=== PATIENT | female | born 1945 | race Caucasian/White ===

== ENCOUNTER 2018-09-29 01:40 | Outpatient (CLI) | payer MEDICARE, SELFPAY ==
[2018-09-29 11:29] LABS: ALT 20 U/L (12-78); AST 18 U/L (15-37); Albumin 3.7 g/dL (3.4-5.0); Alkaline Phosphatase 87 U/L (46-116); Anion Gap 8.3 mmol/L (3-11); BUN 13 mg/dL (7-18); Bilirubin, Total 0.5 mg/dL (0.2-1.0); CO2 28.7 mmol/L (21.0-32.0); CREATININE 0.74 mg/dL (0.55-1.02); Calcium 8.9 mg/dL (8.5-10.1); Chloride 101 mmol/L (98-107); Glucose 87 mg/dL (70-100); Potassium 3.9 mmol/L (3.5-5.1); Sodium 138 mmol/L (136-145)
[2018-09-29 11:49] LABS: Cholesterol 242 mg/dL (50-200); HDL Cholesterol 76 mg/dL (40-60); LDL CHOLESTEROL 143 mg/dL (<100); Triglyceride 60 mg/dL (30-150)
== END 2018-09-29 02:00 ==
PROVIDERS: PCP Family Medicine; Visit Provider Family Medicine
DX: I10 Essential (primary) hypertension (principal); E78.5 Hyperlipidemia, unspecified
CPT/HCPCS: 36415; 80053; 80061; 83721

== ENCOUNTER 2018-10-06 11:47 | Outpatient (REF) | payer MEDICARE, SELFPAY ==
--- NOTE | 2018-10-06 11:15 | SKI_PTH ---
PATIENT: Humaira Angulo LOC: [facility] U#:[id number] AGE/SX: 72/F ROOM: RE10/06/[address]: Saima Zurita MD, DC : 1945 BED: DIS: 10/06/2018 SPEC #: [id number] RECD: 10/07/18 11:33 STATUS: MELY REQ #: [id number] BEBA: 10/06/18 11:[address]: Saima Zurita DEPT: Surgical Specimen RECD BY: Karen Acevedo Tissues: 1 - SKIN BIOPSY(SHAVE/PUNCH) Procedures: SKIN LEVEL 4 Comments: [id number]
== END 2018-10-06 12:07 ==
LOC: LBN 11:47
PROVIDERS: PCP Family Medicine; Visit Provider Family Medicine
DX: L57.0 Actinic keratosis (principal)
CPT/HCPCS: 88305

== ENCOUNTER 2019-08-14 00:12 | Outpatient (CLI) | payer MEDICARE, SELFPAY ==
[2019-08-14 12:25] LABS: Calculated LDL 151 mg/dL (<100); Cholesterol 234 mg/dL (<200); HDL Cholesterol 66 mg/dL (40-60); Triglyceride 89 mg/dL (<150)
[2019-08-14 12:26] LABS: ALT 17 U/L (14-59); AST 15 U/L (15-37); Albumin 3.6 g/dL (3.4-5.0); Alkaline Phosphatase 83 U/L (46-116); Anion Gap 6.5 mmol/L (3-11); BUN 13 mg/dL (7-18); Bilirubin, Total 0.4 mg/dL (0.2-1.0); CO2 29.5 mmol/L (21.0-32.0); CREATININE 0.78 mg/dL (0.55-1.02); Chloride 104 mmol/L (98-107); Glucose 87 mg/dL (74-106); Sodium 140 mmol/L (136-145); Total Protein 6.6 g/dL (6.4-8.2)
== END 2019-08-14 00:32 ==
PROVIDERS: PCP Family Medicine; Visit Provider Family Medicine
DX: I10 Essential (primary) hypertension (principal); E78.5 Hyperlipidemia, unspecified; R74.0 Nonspecific elevation of levels of transaminase and lactic acid dehydrogenase [LDH]
CPT/HCPCS: 36415; 80053; 80061

== ENCOUNTER 2020-02-04 00:22 | Outpatient (CLI) | payer MEDICARE, SELFPAY ==
--- NOTE | 2020-02-04 13:31 | DI.MAMMO_ITS ---
EXAM: MG MAMMO SCREENING CLINICAL HISTORY: screening,Z12.39 TECHNIQUE: Bilateral full field digital CC and MLO mammographic images were obtained with 3D tomosyn thesis and utilizing computer aided detection (CAD). COMPARISON: Available for comparison. FINDINGS: Masses/Architectural Distortion: None seen. Microcalcifications: No suspicious pleomorphic-type are seen. Skin Thickening/Nipple Retraction: None. IMPRESSION: 1. No significant interval change with no specific features of malignancy noted. 2. Unless there is more urgent need, screening mammography is recommended, as per [employer] guidelines. BI-RADS Category 1 - Negative Breast Density - Category B - Scattered areas of fibroglandular density A negative radiographic report should not delay biopsy if a dominant or clinically suspicious mass is present. Up to ten percent of cancers are not identified on mammography. A negative report may reinforce clinical impression. Adenosis and dense breasts may obscure an underlying neoplasm. False positive reports average 6 to 10%. Patient will receive a letter notifying them of these results.
== END 2020-02-04 00:42 ==
PROVIDERS: PCP Family Medicine; Visit Provider Family Medicine
DX: Z12.31 Encounter for screening mammogram for malignant neoplasm of breast (principal)
CPT/HCPCS: 77063; 77067

== ENCOUNTER 2020-03-01 01:07 | Outpatient (CLI) | payer MEDICARE, SELFPAY ==
--- NOTE | 2020-03-01 07:15 | DI.DEXA_ITS ---
EXAM: XR DEXA BONE DENSITY W/WO APARNA CLINICAL HISTORY: osteoporosis,m81.0 TECHNIQUE: [email or web address] Horizon C densitometer. COMPARISON: 2002 and 2007 FINDINGS: The IV a image shows no evidence of compression fracture. The bone mineral density measurements of t he lumbar spine correspond to a total T-score of -1.0. This represents a 3.6 percent decrease when c ompared with 2007 and a 7.5 percent decrease in bone density when compared with 2002. The bone cone examiner al density measurements of the left hip correspond to a total T-score of -1.6 and a femoral neck T-sc ore of -1.8, in the osteopenic range. This represents a 10.2 percent decrease when compared with 200 8 and a 12.5 percent decrease when compared with 2002. The bone mineral density measurements of left forearm correspond to a T-score of the distal 3rd of -1.0, at the lower normal range. IMPRESSION: Osteopenia of the left hip with decrease in density when compared with previous exams. Total bone de nsity of the lumbar spine is at the low normal range. Mild decrease when compared with previous exam s.
== END 2020-03-01 01:27 ==
PROVIDERS: PCP Family Medicine; Visit Provider Family Medicine
DX: M81.0 Age-related osteoporosis without current pathological fracture (principal); M85.88 Other specified disorders of bone density and structure, other site
CPT/HCPCS: 77080

== ENCOUNTER 2020-10-07 01:43 | Outpatient (CLI) | payer MEDICARE, SELFPAY ==
[2020-10-07 13:06] LABS: ALT 25 U/L (14-59); AST 19 U/L (15-37); Albumin 3.8 g/dL (3.4-5.0); Alkaline Phosphatase 78 U/L (46-116); BUN 12 mg/dL (7-18); Bilirubin, Total 0.6 mg/dL (0.2-1.0); CREATININE 0.8 mg/dL (0.55-1.02); Chloride 105 mmol/L (98-107); Glucose 83 mg/dL (74-106); Potassium 3.8 mmol/L (3.5-5.1); Sodium 140 mmol/L (136-145); Total Protein 7.2 g/dL (6.4-8.2); Vitamin B12 383 pg/mL (193-986)
[2020-10-10 11:05] LABS: Hepatitis C Ab w Rflx HCV PCR Negative (Negative)
== END 2020-10-07 01:44 | disposition home or self-care (01) ==
LOC: LOS 01:43
PROVIDERS: PCP Family Medicine; Visit Provider Family Medicine
DX: I10 Essential (primary) hypertension (principal); L98.8 Other specified disorders of the skin and subcutaneous tissue; R23.8 Other skin changes; Z11.59 Encounter for screening for other viral diseases
CPT/HCPCS: 36415; 80053; 86803; 82607

== ENCOUNTER → 2021-12-06 03:43 | Outpatient (CLI) | payer MEDICARE, SELFPAY ==
--- NOTE | 2021-12-06 07:45 | DI.MAMMO_ITS ---
Exam(s) MAMMO SCREENING EXAM: MAMMO SCREENING CLINICAL HISTORY: screening, Z12.39 TECHNIQUE: Bilateral full field digital CC and MLO mammographic images were obtained with 3D tomosyn thesis and utilizing computer aided detection (CAD). COMPARISON: Available for comparison. FINDINGS: Masses/Architectural Distortion: None seen. Microcalcifications: No suspicious pleomorphic-type are seen. Skin Thickening/Nipple Retraction: None. IMPRESSION: 1. No significant interval change with no specific features of malignancy noted. 2. Unless there is more urgent need, screening mammography is recommended, as per [employer] guidelines. BI-RADS Category 1 - Negative Breast Density - Category B - Scattered areas of fibroglandular density Breast density category C or D implies that the patient has dense breast tissue. Dense breast tissue is very common and is not abnormal but dense breast tissue can make it harder to find cancer on a ma mmogram. Also, dense breast tissue may increase their breast cancer risk. This information about the result of the mammogram report was provided to the patient to raise their awareness. Use this report when you speak with the patient about their risks for breast cancer, which includes their family hist ory. At that time, you may recommend for more screening tests (Ultrasound or MRI) as they might be us eful based on their risk. A negative radiographic report should not delay biopsy if a dominant or clinically suspicious mass is present. Up to ten percent of cancers are not identified on mammography. A negative report may reinforce clinical impression. Adenosis and dense breasts may obscure an underlying neoplasm. False positive reports average 6 to 10%. Patient will receive a letter notifying them of these results.
== END ==
PROVIDERS: PCP Family Medicine; Visit Provider Family Medicine
DX: Z12.31 Encounter for screening mammogram for malignant neoplasm of breast (principal)
CPT/HCPCS: 77063; 77067

== ENCOUNTER 2022-02-13 10:03 | Outpatient (CLI) | payer MEDICARE, SELFPAY ==
[2022-02-13 11:22] LABS: ALT 21 U/L (14-59); AST 15 U/L (15-37); Albumin 3.7 g/dL (3.4-5.0); Alkaline Phosphatase 82 U/L (46-116); Anion Gap 7.7 mmol/L (3-11); BUN 18 mg/dL (7-18); Bilirubin, Total 0.5 mg/dL (0.2-1.0); CO2 27.3 mmol/L (21.0-32.0); CREATININE 0.9 mg/dL (0.55-1.02); Calcium 9.1 mg/dL (8.5-10.1); Chloride 99 mmol/L (98-107); Glucose 88 mg/dL (74-106); Potassium 3.2 mmol/L (3.5-5.1); Sodium 134 mmol/L (136-145); Total Protein 7.6 g/dL (6.4-8.2)
== END 2022-02-13 10:04 | disposition home or self-care (01) ==
LOC: LBO 10:04
PROVIDERS: PCP Family Medicine; Visit Provider Family Medicine
DX: I10 Essential (primary) hypertension (principal)
CPT/HCPCS: 36415; 80053

== ENCOUNTER 2022-11-26 15:57 | Outpatient (CLI) | payer MEDICARE, SELFPAY ==
[2022-11-26 14:19] LABS: ALT 24 U/L (14-59); AST 20 U/L (15-37); Albumin 3.6 g/dL (3.4-5.0); Alkaline Phosphatase 110 U/L (46-116); Anion Gap 9.3 mmol/L (3-11); BUN 14 mg/dL (7-18); Bilirubin, Total 0.4 mg/dL (0.2-1.0); CO2 29.7 mmol/L (21.0-32.0); CREATININE 0.7 mg/dL (0.55-1.02); Chloride 101 mmol/L (98-107); Estimated GFR 90.14 (mL/min/1.73m2); Glucose 94 mg/dL (74-106); Potassium 3.5 mmol/L (3.5-5.1); Sodium 140 mmol/L (136-145); Total Protein 7.3 g/dL (6.4-8.2)
== END 2022-11-26 15:58 | disposition home or self-care (01) ==
LOC: LBO 16:01
PROVIDERS: PCP Family Medicine; Visit Provider Family Medicine
DX: I10 Essential (primary) hypertension (principal)
CPT/HCPCS: 36415; 80053

== ENCOUNTER → 2024-01-06 02:02 | Outpatient (CLI) | payer MEDICARE, SELFPAY ==
--- NOTE | 2024-01-06 09:45 | DI.RAD_ITS ---
Exam(s) XR CHEST 2V PA LATERAL EXAM: XR CHEST 2V PA LATERAL CLINICAL HISTORY: f/u pneumonia resolution, J18.9 TECHNIQUE: 2D digital imaging was performed of the chest. Two images were obtained. PA and lateral views were obtained. COMPARISON: No exams were available for comparison FINDINGS: MEDIASTINUM: Normal. HEART: Normal. PULMONARY VASCULATURE: Normal. LUNGS: The lungs are hyperinflated. No focal consolidating infiltrates are seen. PLEURAL SPACE: No pleural effusion or pneumothorax. BONE:Within normal limits for the patient's age. OTHER FINDINGS:Normal. IMPRESSION: 1. Hyperinflation of the lungs which can be seen with COPD. 2. No focal consolidating infiltrates. DATA REPOSITORY: RADIATION DOSE DELIVERED:
== END ==
PROVIDERS: PCP Family Medicine; Visit Provider Family Medicine
DX: J18.9 Pneumonia, unspecified organism (principal)
CPT/HCPCS: 71046

== ENCOUNTER → 2024-01-29 02:08 | Outpatient (CLI) | payer MEDICARE, SELFPAY ==
--- NOTE | 2024-01-29 08:30 | DI.US_ITS ---
APPROVED REPORT EXAM: Comprehensive 2D, Doppler, and color-flow Echocardiogram Patient Location: [facility] Worker: Violette Kendrick RDCS (AE) Indications: LBBB, SOB, Congenital malformation Other Information Study Quality: Adequate Conclusion Normal left ventricular wall thickness and chamber size. Ejection fraction is 55 to 60%. Wall motio n is normal Normal right ventricular size and function Both atria are normal in size There are no structural valvular abnormalities There is mild to moderate mitral regurgitation Estimated right ventricular systolic pressure is 37 mmHg Wall motion Left Ventricle The left ventricle is normal size. The left ventricular systolic function is normal. The left ventric ular ejection fraction is within the normal range. There is normal left ventricular wall thickness. T here is normal LV segmental wall motion. There is no ventricular septal defect visualized. LVEF is 56 %. Right Ventricle The right ventricle is normal size. The right ventricular systolic function is normal. Atria The left atrium size is normal. The right atrium size is normal. The interatrial septum is intact wit h no evidence for an atrial septal defect. Aortic Valve The aortic valve is normal in structure. Aortic valve is trileaflet. There is no aortic valvular sten osis. No aortic regurgitation is present. Mitral Valve The mitral valve is normal in structure. No evidence of mitral valve stenosis. Mild to moderate mi tral regurgitation. Tricuspid Valve The tricuspid valve is normal in structure. There is no tricuspid valve stenosis. Mild tricuspid reg urgitation. The RVSP is 37.2 mmHg. Pulmonic Valve Pulmonic valve is not well visualized. There is no pulmonic valvular stenosis. There is no pulmonic v alvular regurgitation. Great Vessels The aortic root is normal in size. Ascending aorta is not well visualized. Aortic arch is not well vi sualized. IVC is normal in size and collapses >50% with inspiration. Pericardium There is no pericardial effusion. 2D Dimensions IVSD d PLAX 0.80 cm F: 0.6-1.0 Ao Root d 2.38 cm F: 2.7 - 3.3 LVPW d PLAX 0.80 cm F: 0.6 - 1.0 LVID d PLAX 4.00 cm F: 3.8 - 5.2 LVDs 2.83 cm F: 2.2 - 3.5 LV EF Teichholz 55.7 % FS 28.60 % LV EDV (Teich) 68.8 mL LV ESV (Teich) 30.5 mL M-Mode TAPSE 2.06 cm (M/F) >1.7 Auto EF LV EDV A4C 68.3 mL LV EDV A2C 60.2 mL LV EDV BP 66.6 mL LV ESV A4C 31.2 mL LV ESV A2C 26.1 mL LV ESV BP 28.8 mL LVEF(%) A4C 54.4 % LVEF(%) A2C 56.7 % LVEF(%) BP 56.8 % LV SV A4C 37.2 ml LV SV A2C 34.1 ml LV SV BP 37.9 ml LV CO A4C 2.4 L/min LV CO A2C 2.1 L/min LV CO BP 2.2 L/min HR A4C 63.50 BPM HR A2C 62.29 BPM LV EDV Index (BP) LA Volume LA Length A4C 4.2 cm LA Length A2C 5.0 cm LA Area A4C s 14.49 cm2 LA Area A2C s 14.25 cm2 LA Vol A4C A-L 42.42 mL LA Vol A2C A-L 34.32 mL LA Vol Biplane A-L 41.7 mL LA Vol/BSA A4C A-L LA Vol/BSA A2C A-L LA Vol/BSA BP A-L 26.2 mL/m2 LA Vol A4C MOD 39.6 mL LA Vol A2C MOD 31.5 mL LA Vol BP MOD 38.2 mL RA Volume RA Area A4C 9.1 cm2 RA ESV A4C (A-L) 17.9mL RA Vol/BSA A4C A-L RA Length A4C 3.9 cm RA ESV A4C (MOD) 17.4mL LV Diastology MV E' medial 0.044 (>0.07 m/s) MV E Vmax 0.79 (0.4-1.3 m/s) MV E/E' MED 17.90 (<14) MV A Vmax 0.80 (0.4-1.3 m/s) MV E' lateral 0.082 (>0.1 m/s) E/A Ratio 1.0 MV E/E' LAT 9.56 (<14) MV E' Average 0.063 m/s MV E/E'(average) 12.47 Aortic Valve AoV Vmax 1.61 m/s LVOT Vmax 1.08 m/s AoV Peak Grad 10.4 mmHg LVOT Peak Grad 4.7 mmHg AoV Area (Vmax) 1.95 cm2 LVOT VTI 0.273 m AoV VTI 0.393 m LVOT Mean Grad 2.7 mmHg AoV Mean Serafin. 1.08 m/s LVOT SV 79.61 mL AoV Mean Grad 5.3 mmHg LVOT Diam s 1.90 cm AoV Area (VTI) 2.02 cm2 Velocity Ratio 0.67 Mitral Valve MV DT 198 (160-240 msec) MV Vmax TIPS 0.93 m/s MV Mean Grad 1.7 (<2mmHg) MV VTI 0.260 m Pulmonary Valve PV Vmax 1.15 (0.5-1.5 m/s) RVOT Vmax 0.68 m/s PV Peak Grad 5.3 mmHg RVOT Peak Gr. 1.8 mmHg PV Mean Serafin 0.78 m/s RVOT VTI 0.163 m PV Mean Grad 2.8 mmHg RVOT Mean Gr. 1.3 mmHg Tricuspid Valve RA Pressure 3.00 mmHg TR Vmax 2.93 m/s TV S' 0.12 m/s TR Peak Grad 34.2 mmHg RVSP (TR) 37.2 mmHg
== END ==
PROVIDERS: PCP Family Medicine; Visit Provider Family Medicine
DX: Q24.9 Congenital malformation of heart, unspecified (principal); R06.02 Shortness of breath; I44.7 Left bundle-branch block, unspecified
CPT/HCPCS: 93306

== ENCOUNTER 2024-02-04 01:28 | Outpatient (CLI) | payer MEDICARE, SELFPAY ==
[2024-02-04 11:00] LABS: ALT 26 U/L (14-59); AST 21 U/L (15-37); Albumin 3.8 g/dL (3.4-5.0); Alkaline Phosphatase 76 U/L (46-116); Anion Gap 9.2 mmol/L (3-11); BUN 14 mg/dL (7-18); Bilirubin, Total 0.73 mg/dL (0.2-1.0); CO2 28.8 mmol/L (21.0-32.0); CREATININE 0.8 mg/dL (0.55-1.02); Calcium 9.6 mg/dL (8.5-10.1); Calculated LDL 139 mg/dL (<100); Chloride 101 mmol/L (98-107); Cholesterol 241 mg/dL (<200); Estimated GFR 76.31 (mL/min/1.73m2); Glucose 95 mg/dL (74-106); HDL Cholesterol 93 mg/dL (40-60); Potassium 3.9 mmol/L (3.5-5.1); Sodium 139 mmol/L (136-145); Total Protein 7.7 g/dL (6.4-8.2); Triglyceride 47 mg/dL (<150)
== END 2024-02-04 01:29 | disposition home or self-care (01) ==
LOC: LBO 01:28
PROVIDERS: PCP Family Medicine; Visit Provider Family Medicine
DX: I10 Essential (primary) hypertension (principal)
CPT/HCPCS: 36415; 80053; 80061

== ENCOUNTER 2024-07-29 02:19 | Outpatient (CLI) | payer MEDICARE, SELFPAY ==
--- NOTE | 2024-07-29 14:32 | DI.US_ITS ---
APPROVED REPORT EXAM: Comprehensive 2D, Doppler, and color-flow Echocardiogram Patient Location: [facility] [employer] Agent: Violette Kendrick RDCS (AE) Indications: Pulmonary HTN Other Information Study Quality: Adequate Conclusion Normal left ventricular wall thickness and chamber size. Ejection fraction is 55 to 60%. Wall motio n is normal Normal right ventricular size and function Both atria are normal in size. The atrial septum is thin and hypermobile There are no structural valvular abnormalities Estimated right ventricular systolic pressure is 34 mmHg Compared to a study from January 2024, right ventricular systolic pressure has decreased slightly Wall motion Left Ventricle The left ventricle is normal size. The left ventricular systolic function is normal. The left ventric ular ejection fraction is within the normal range. There is normal left ventricular wall thickness. T here is normal LV segmental wall motion. There is no ventricular septal defect visualized. LVEF is 57 %. Right Ventricle The right ventricle is normal size. The right ventricular systolic function is normal. Atria The left atrium size is normal. The right atrium size is normal. Atrial septal aneurysm is present. Aortic Valve The aortic valve is normal in structure. Aortic valve is trileaflet. There is no aortic valvular sten osis. No aortic regurgitation is present. Mitral Valve The mitral valve is normal in structure. No evidence of mitral valve stenosis. Mild mitral regurgita tion. Tricuspid Valve The tricuspid valve is normal in structure. There is no tricuspid valve stenosis. Mild tricuspid reg urgitation. The RVSP is 34.2 mmHg. Pulmonic Valve Pulmonic valve is not well visualized. There is no pulmonic valvular stenosis. There is no pulmonic v alvular regurgitation. Great Vessels The aortic root is normal in size. Ascending aorta is not well visualized. Aortic arch is not well vi sualized. IVC is normal in size and collapses >50% with inspiration. Pericardium There is no pericardial effusion. 2D Dimensions IVSD d PLAX 0.84 cm F: 0.6-1.0 Ao Root d 2.36 cm F: 2.7 - 3.3 LVPW d PLAX 0.80 cm F: 0.6 - 1.0 LVID d PLAX 4.00 cm F: 3.8 - 5.2 LVDs 2.80 cm F: 2.2 - 3.5 LV EF Teichholz 57.6 % FS 29.87 % LV EDV (Teich) 68.9 mL LV ESV (Teich) 29.2 mL M-Mode TAPSE 2.35 cm (M/F) >1.7 Auto EF LV EDV A4C 60.4 mL LV EDV A2C 90.5 mL LV EDV BP 72.9 mL LV ESV A4C 26.7 mL LV ESV A2C 37.6 mL LV ESV BP 32.1 mL LVEF(%) A4C 55.9 % LVEF(%) A2C 58.4 % LVEF(%) BP 56.0 % LV SV A4C 33.8 ml LV SV A2C 52.9 ml LV SV BP 40.8 ml LV CO A4C 2.5 L/min LV CO A2C 3.4 L/min LV CO BP 3.0 L/min HR A4C 73.93 BPM HR A2C 64.75 BPM LV EDV Index (BP) LA Volume LA Length A4C 3.6 cm LA Length A2C 4.4 cm LA Area A4C s 11.59 cm2 LA Area A2C s 12.87 cm2 LA Vol A4C A-L 31.83 mL LA Vol A2C A-L 32.04 mL LA Vol Biplane A-L 35.3 mL LA Vol/BSA A4C A-L LA Vol/BSA A2C A-L LA Vol/BSA BP A-L 42.6 mL/m2 LA Vol A4C MOD 29.3 mL LA Vol A2C MOD 30.6 mL LA Vol BP MOD 33.0 mL RA Volume RA Area A4C 8.4 cm2 RA ESV A4C (A-L) 14.9mL RA Vol/BSA A4C A-L RA Length A4C 4.0 cm RA ESV A4C (MOD) 14.7mL LV Diastology MV E' medial 0.069 (>0.07 m/s) MV E Vmax 0.74 (0.4-1.3 m/s) MV E/E' MED 10.84 (<14) MV A Vmax 1.05 (0.4-1.3 m/s) MV E' lateral 0.077 (>0.1 m/s) E/A Ratio 0.7 MV E/E' LAT 9.70 (<14) MV E' Average 0.073 m/s MV E/E'(average) 10.24 Aortic Valve AoV Vmax 1.33 m/s LVOT Vmax 1.13 m/s AoV Peak Grad 7.1 mmHg LVOT Peak Grad 5.1 mmHg AoV Area (Vmax) 2.33 cm2 LVOT VTI 0.230 m AoV VTI 0.307 m LVOT Mean Grad 2.6 mmHg AoV Mean Serafin. 0.93 m/s LVOT SV 63.19 mL AoV Mean Grad 3.9 mmHg LVOT Diam s 1.85 cm AoV Area (VTI) 2.06 cm2 AV Regurg Peak Gr. 7.09 mmHg Velocity Ratio 0.85 Mitral Valve MV DT 214 (160-240 msec) MV Vmax TIPS 0.98 m/s MV Mean Grad 2.2 (<2mmHg) MV VTI 0.279 m Pulmonary Valve PV Vmax 1.25 (0.5-1.5 m/s) RVOT Vmax 0.71 m/s PV Peak Grad 6.2 mmHg RVOT Peak Gr. 2.0 mmHg PV Mean Serafin 0.85 m/s RVOT VTI 0.168 m PV Mean Grad 3.2 mmHg RVOT Mean Gr. 1.2 mmHg Tricuspid Valve RA Pressure 3.00 mmHg TR Vmax 2.79 m/s TV S' 0.14 m/s TR Peak Grad 31.2 mmHg RVSP (TR) 34.2 mmHg
== END 2024-07-29 02:39 ==
LOC: DI 02:19
PROVIDERS: PCP Family Medicine; Visit Provider Internal Medicine Cardiovascular Disease
DX: I27.20 Pulmonary hypertension, unspecified (principal)
CPT/HCPCS: 93306

== ENCOUNTER 2025-01-11 09:07 | Outpatient (CLI) | payer MEDICARE, SELFPAY ==
--- NOTE | 2025-01-11 09:00 | RT.EKG_ITS ---
APPROVED REPORT Exam: Resting ECG Reason for Exam: ? a-fib Patient Location: O HR:66 bpm ECG Measurements Heart Rate 66 AXIS IA 165 P 34 QRSd 149 QRS -3 QT 486 T 90 QTc 510 Conclusion Sinus rhythm...normal P axis, V-rate 50- 99 Left bundle branch block...QRSd>120, broad/notched R
== END 2025-01-11 09:08 | disposition home or self-care (01) ==
LOC: DI.CM 09:08
PROVIDERS: PCP Family Medicine; Visit Provider Family Medicine
DX: R55 Syncope and collapse (principal); I48.0 Paroxysmal atrial fibrillation
CPT/HCPCS: 93010

== ENCOUNTER 2025-01-11 09:24 | Outpatient (CLI) | payer MEDICARE, SELFPAY ==
[2025-01-11 12:23] LABS: HCT 38.2 % (36.0-46.0); HGB 12.7 g/dL (11.2-15.7); MCH 28.1 pg (27.0-33.0); MCHC 33.2 % (32.0-36.0); MCV 85 fL (80-95); MPV 11.2 fL (8.0-11.0); Platelet Count 182 10^3/uL (130-400); RBC 4.52 10^6/uL (3.93-5.22); RDW 13.1 % (11.7-14.6); RDW-SD 40.3 fL; WBC 5.72 10^3/uL (4.4-10.8)
[2025-01-11 12:50] LABS: ALT 26 U/L (14-59); AST 21 U/L (15-37); Albumin 3.9 g/dL (3.4-5.0); Alkaline Phosphatase 68 U/L (46-116); Anion Gap 8.9 mmol/L (3-11); BUN 20 mg/dL (7-18); Bilirubin, Total 0.7 mg/dL (0.2-1.0); CO2 29.1 mmol/L (21.0-32.0); CREATININE 0.6 mg/dL (0.55-1.02); Calcium 9.1 mg/dL (8.5-10.1); Calculated LDL 67 mg/dL (<100); Chloride 102 mmol/L (98-107); Cholesterol 167 mg/dL (<200); Estimated GFR 92.39 (mL/min/1.73m2); Glucose 98 mg/dL (74-106); HDL Cholesterol 95 mg/dL (>or=50); Potassium 3.5 mmol/L (3.5-5.1); Sodium 140 mmol/L (136-145); TSH (W/Ref FT4) 0.66 uIU/mL (0.36-3.74); Total Protein 7.5 g/dL (6.4-8.2); Triglyceride 29 mg/dL (<150)
== END 2025-01-11 09:25 | disposition home or self-care (01) ==
PROVIDERS: PCP Family Medicine; Referring Provider Family Medicine; Visit Provider Family Medicine
DX: E03.9 Hypothyroidism, unspecified (principal); R55 Syncope and collapse; I10 Essential (primary) hypertension
CPT/HCPCS: 36415; 80053; 80061; 85027; 84443

== ENCOUNTER 2025-01-12 08:13 | Outpatient (CLI) | payer MEDICARE, SELFPAY | END 2025-01-12 08:14 | disposition home or self-care (01) | PROVIDERS: PCP Family Medicine; Visit Provider Family Medicine | DX: I48.91 Unspecified atrial fibrillation (principal); R55 Syncope and collapse; I44.7 Left bundle-branch block, unspecified | CPT/HCPCS: 93246 ==

== ENCOUNTER 2025-02-02 01:54 | Outpatient (CLI) | payer MEDICARE, SELFPAY ==
--- NOTE | 2025-02-02 07:00 | DI.US_ITS ---
Exam(s) US CAROTID EXAM: US CAROTID CLINICAL HISTORY: syncope.,R55. TECHNIQUE: Ultrasound carotids performed using grayscale, color-flow, and spectral Doppler imaging. COMPARISON: No exams were available for comparison FINDINGS: RIGHT CAROTID ARTERY: Plaque: Focus of calcific plaque at the bulb. Velocity elevation: None. LEFT CAROTID ARTERY: Plaque: Minima calcific plaque . Velocity elevation: None. VERTEBRAL ARTERIES: Antegrade flow. Measurements: R Bulb: 82cm/s PS / 18.1cm/s ED R CCA: 91.1cm/s PS / 25.4cm/s ED R ECA: 159.7cm/s PS / 30.9cm/s ED R ICA Prox: 121.3cm/s PS / 39.6cm/s ED R ICA Mid: 130.7cm/s PS / 36.4cm/s ED R ICA Distal: 146.9cm/s PS /39.7cm/s ED R Vert: 60.1cm/s PS / 18.7cm/s ED R SVR: 1.6 R DVR: 1.6 L Bulb: 62.1cm/s PS / 14.3cm/s ED L CCA: PS / 27.4cm/s ED L ECA: 98.8cm/s PS / 12.1cm/s ED L ICA Prox: 68.5cm/s PS / 18.6cm/s ED L ICA Mid: 85.7cm/s PS / 24.5cm/s ED L ICA Distal: 116.1cm/s PS / 34.6cm/s ED L Vert: 57.1cm/s PS / 13cm/s ED L SVR: 1 L DVR: 1.3 IMPRESSION: Velocity measurements in the distal right internal carotid artery correspond to a 50-69 percent stenosis however visually the stenosis appears less than 50 percent. Criteria for Carotid Stenosis: Normal: ICA PSV <125 cm/s no plaque or intimal thickening is visible. <50% stenosis: ICA PSV <125 cm/s and plaque or intimal thickening is visible. 50-69% stenosis: ICA PSV is 125-250 cm/s and plaque is visible. >70% stenosis to near occlusion: ICA PSV >250 cm/s with visible plaque and luminal narrowing. DATA REPOSITORY:
== END 2025-02-02 02:14 ==
LOC: DI 01:55
PROVIDERS: PCP Family Medicine; Visit Provider Family Medicine
DX: R55 Syncope and collapse (principal)
CPT/HCPCS: 93880

== ENCOUNTER 2025-02-02 07:29 | Outpatient (CLI) | payer MEDICARE, SELFPAY ==
--- NOTE | 2025-02-02 12:21 | W.CARDEVENT ---
Date of service: 02/02/25 Time of Service: 12:21 Cardiac Event Recorder Referring Provider:: Saima Zurita Indications:: Atrial fibrillation Cardiac Event Note: This is a cardiac event monitor. Patient was monitored for 13 days and 13 hours Rhythm throughout was sinus with an average heart rate of 68. Minimum was 73, maximum 142 There were very rare isolated ventricular ectopic beats There were rare atrial premature beats. Self-limited atrial runs occurred. The longest of these was 16 beats in duration. The majority were 4-6 beats in length. There was no atrial fibrillation, no high-grade AV block, no pauses greater than 3 seconds. Patient's symptoms were predominantly associated with sinus rhythm, rarely to an atrial premature beat
== END 2025-02-02 07:30 | disposition home or self-care (01) ==
LOC: CARDOPNVT 07:29
PROVIDERS: PCP Family Medicine; Visit Provider Internal Medicine Cardiovascular Disease
DX: I48.91 Unspecified atrial fibrillation (principal); I47.10 Supraventricular tachycardia, unspecified
CPT/HCPCS: 93248